=== PATIENT | male | born 1955 | race African-American/Black ===

== ENCOUNTER 2016-12-16 01:13 | Emergency (ER) | payer OTHER ==
[~2016-12-16] VITALS: Ht 175.3 cm; Wt 78.0 kg
--- NOTE | ~2016-12-16 | EKG ---
[place] [place] [address] ELECTROCARDIOGRAM REPORT Name: MARSHALL KLINE Room #: [facility]P [facility] [id number] Admission: 12/16/16 Attend Phys: Discharge: 12/16/16 Date of : 53 Report #: [id number] THIS REPORT FOR: //name// [facility] ED Test Date: 2016-12-16 Test Time: 04:14:16 Pat Name: MARSHALL KLINE Department: Room: Gender: Systems Support Specialist: HEAVENLY : 1955 Requested By: Nikki Leal Order Number: [id number] MD: Davi Purdy Measurements Intervals [place] Rate: 83 P: 74 [place]: 158 QRS: 54 QRSD: 95 T: 33 QT: 423 QTc: 497 Interpretive Statements Sinus rhythm Left atrial enlargement Left ventricular hypertrophy Anterior Q waves, possibly due to LVH No previous ECG available for comparison Electronically Signed On 12-18-2016 13:06:35 CDT by Davi Purdy [email or web address] <ELECTRONICALLY SIGNED> By: Davi Purdy MD, [facility] 12/18/16 1306 0414 0414 Davi Purdy MD, FACC /EPI
--- NOTE | ~2016-12-16 | EKG ---
[place] [address] [place] [address] ELECTROCARDIOGRAM REPORT Name: MARSHALL KLINE Room #: DEP Mejia#: [id number] Admission: 12/16/16 Attend Phys: Discharge: 12/16/16 Date of : 53 Report #: [id number] THIS REPORT FOR: //name// [facility] ED Test Date: 2016-12-16 Test Time: 01:30:01 Pat Name: MARSHALL KLINE Department: Room: Gender: Senior J2Ee Developer: PHILOMENA : 1955 Requested By: Nikki Leal Order Number: [id number] MD: Davi Purdy Measurements Intervals [place] Rate: 89 P: 74 FL: 144 QRS: 67 QRSD: 98 T: 19 QT: 426 QTc: 519 Interpretive Statements Sinus rhythm Left atrial enlargement Left ventricular hypertrophy Prolonged QT interval No previous ECG available for comparison Electronically Signed On 12-18-2016 13:06:18 CDT by Davi Purdy [email or web address] <ELECTRONICALLY SIGNED> By: Davi Purdy MD, [facility] 12/18/16 1306 0130 0130 Davi Purdy MD, FACC /EPI
[2016-12-16] MEDS ORDERED: VENTOLIN HFA 1818 GM INH ×2 (01:26→04:34)
[2016-12-16] MEDS ORDERED: BREO ELLIPTA 11 EACH IH (01:26)
[2016-12-16 01:33] LABS: ABSOLUTE NEUTROPHILS 2.2 thou/uL (1.4-8.2); EOSINOPHILS 1.7 % (0.0-3.0); HEMATOCRIT 44.7 % (42.0-52.0); HEMOGLOBIN 15.3 gm/dL (14.0-18.0); LYMPHOCYTES 50.7 % (24.0-44.0); MCH 31.1 pg (26.0-34.0); MCHC 34.2 g/dL (28.0-37.0); MCV 91.1 fL (80.0-100.0); PLATELET COUNT 186 thou/uL (150-400); POLYS 35.6 % (36.0-66.0); RDW 14.6 % (10.5-14.5); WBC 6.2 thou/uL (4.0-11.0)
[2016-12-16 01:38] LABS: CALCIUM 8.5 mg/dL (8.5-10.1); CREATININE 1.5 mg/dL (0.7-1.3)
[2016-12-16 01:44] LABS: ABG SAMPLE TYPE ARTERIAL; BE(vivo) -2.8 mmol/L (-2 to +3); HCO3 24.7 mmol/L (22.0-26.0); O2(CT) 20.6 mL/dL (15.0-23.0); O2Hb 92.6 % (92.0-98.0); PCO2 53.2 mmHg (35.0-45.0); PO2 122.5 mmHg (80.0-100.0); tCO2 26.3 mmol/L (24.0-30.0)
[2016-12-16 01:45] LABS: LACTATE 3.66 mmol/L (0.5-2.0); Pressure Support 6 cm H20; STICK SITE L.RADIAL; pH 7.284 (7.360-7.450)
[2016-12-16 01:51] LABS: MANUAL DIFF NO
[2016-12-16 01:52] LABS: TROPONIN-I 0.04 ng/mL (<0.04-0.07)
[2016-12-16] MEDS ORDERED: ALBUTEROL2.5 MG/31 INH (04:34)
[2016-12-16] MEDS ORDERED: PREDNISONE50 MG PO (04:35)
[2016-12-16 04:53] VITALS: BP 166/101
== END 2016-12-16 04:58 | disposition left against medical advice (07) ==
LOC: ER 01:13
PROVIDERS: Emergency Medicine
DX: J44.1 Chronic obstructive pulmonary disease with (acute) exacerbation (principal); R09.02 Hypoxemia; F17.210 Nicotine dependence, cigarettes, uncomplicated; F10.99 Alcohol use, unspecified with unspecified alcohol-induced disorder; F12.10 Cannabis abuse, uncomplicated

== ENCOUNTER 2017-09-01 03:23 | Inpatient (IN) | payer OTHER ==
[~2017-09-01] VITALS: Ht 172.7 cm; Wt 74.4 kg
[2017-09-01] VITALS (13 sets, daily range): BP systolic 90–231; BP diastolic 62–136
--- NOTE | ~2017-09-01 | EKG ---
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 : 1955 Requested By: Rene Christiansen Order Number: [id number] MD: Davi Purdy Measurements Intervals [place] Rate: 114 P: IN: QRS: 58 QRSD: 94 T: 4 QT: 328 QTc: 452 Interpretive Statements Technically poor tracing Sinus tachycardia with immature ventricular complexes LVH Compared to ECG 12/16/2016 04:14:16 Premature ventricular complexes are present Electronically Signed On 09-01-2017 8:24:45 CDT by Davi Purdy [email or web address] <ELECTRONICALLY SIGNED> By: Davi Purdy MD, [facility] 09/01/17 0824 1 1 Davi Purdy MD, [facility] /EPI
[~2017-09-01 03:23] MED LIST: ALBUTEROL2.5 MG/31 INH; BREO ELLIPTA 11 EACH IH; PREDNISONE50 MG PO; VENTOLIN HFA 1818 GM INH
[2017-09-01 03:46] LABS: HEMOGLOBIN 15.3 gm/dL (14.0-18.0); MCH 31.5 pg (26.0-34.0); MCHC 33.9 g/dL (28.0-37.0); MCV 92.9 fL (80.0-100.0); PLATELET COUNT 300 thou/uL (150-400); RBC 4.84 mil/uL (4.50-6.00); RDW 15.5 % (10.5-14.5); WBC 8.8 thou/uL (4.0-11.0)
[2017-09-01 04:01] LABS: ANION GAP 8 mmol/L (7-16); BUN 16 mg/dL (7-18); CALCIUM 8.9 mg/dL (8.5-10.1); CHLORIDE 107 mmol/L (98-107); CO2 28 mmol/L (21-32); CREATININE 1.2 mg/dL (0.7-1.3); POTASSIUM 4.1 mmol/L (3.5-5.1); SODIUM 143 mmol/L (136-145)
[2017-09-01 04:09] LABS: HCO3 25.5 mmol/L (22.0-26.0); PO2 378.2 mmHg (80.0-100.0); sO2 99.7 % (92.0-98.0)
[2017-09-01 04:10] LABS: ALBUMIN 3.6 g/dL (3.4-5.0); GLUCOSE 247 mg/dL (74-106); MAGNESIUM 2.6 mg/dL (1.8-2.4); SGPT 52 U/L (30-65); TOTAL BILIRUBIN 0.3 mg/dL (<0.1-1.0); TOTAL PROTEIN 7.2 g/dL (6.4-8.2); TROPONIN-I < 0.04 ng/mL (<0.06)
[2017-09-01 04:10] LABS: PCO2 73.4 mmHg (35.0-45.0); pH 7.159 (7.360-7.450)
[2017-09-01 04:29] LABS: SGOT 54 U/L (15-37)
[2017-09-01 04:35] LABS: ABSOLUTE NEUTROPHILS 1.2 thou/uL (1.4-8.2)
[2017-09-01] MEDS ORDERED: COZAAR 50 MG TA50 M2 PO (06:32)
[2017-09-01 08:58] LABS: BE(vivo) 2.6 mmol/L (-2 to +3); HCO3 29.3 mmol/L (22.0-26.0); PCO2 53.1 mmHg (35.0-45.0); PO2 66.3 mmHg (80.0-100.0); sO2 92.1 % (92.0-98.0)
[2017-09-01] MEDS ORDERED: PREDNISONE50 MG PO (08:59)
[2017-09-01] MEDS ORDERED: VENTOLIN HFA 1818 GM INH (08:59)
[2017-09-01] MEDS ORDERED: AZITHROMYCIN 2250 MG PO (09:00)
[2017-09-02 00:09] LABS: GLYCOHEMOGLOBIN (HGB A1C) 5.3 % (4.8-5.6)
[2018-02-04] MEDS ORDERED: AZITHROMYCIN 2250 MG PO (04:06)
[2018-02-04] MEDS ORDERED: PREDNISONE 20 M20 MG PO (04:06)
[2018-02-04] MEDS ORDERED: HYDROCHLOROTHIA25 M2 PO (04:06)
[2018-02-04] MEDS ORDERED: ASPIRIN81 M2 PO (04:06)
[2018-02-04] MEDS ORDERED: CARVEDILOL12.5 MG PO (04:06)
== END 2017-09-01 10:10 | disposition left against medical advice (07) | DRG 189 ==
LOC: ER 03:23 → ICU 04:28 → EROBS 04:28 → ICU 05:01
PROVIDERS: Emergency Medicine; Nurse Practitioner Acute Care
DX: J96.22 Acute and chronic respiratory failure with hypercapnia (principal); J44.1 Chronic obstructive pulmonary disease with (acute) exacerbation; E87.2 Acidosis; I16.0 Hypertensive urgency; R73.9 Hyperglycemia, unspecified; I10 Essential (primary) hypertension; F17.210 Nicotine dependence, cigarettes, uncomplicated; Z53.21 Procedure and treatment not carried out due to patient leaving prior to being seen by health care provider; Z79.51 Long term (current) use of inhaled steroids; Z79.899 Other long term (current) drug therapy; Z71.6 Tobacco abuse counseling
CPT/HCPCS: 10203

== ENCOUNTER 2017-09-28 00:28 | Inpatient (IN) | payer OTHER ==
[~2017-09-28] VITALS: Ht 175.3 cm; Wt 75.4 kg
--- NOTE | ~2017-09-28 | EKG ---
[address] [address] ELECTROCARDIOGRAM REPORT Name: MARSHALL KLINE Room #: 203-P ADM IN M.R.#: [id number] Admission: 09/28/17 Attend Phys: Reinier Kessler MD Discharge: Date of : 53 Report #: [id number] THIS REPORT FOR: //name// [facility] ED Test Date: 2017-09-28 Test Time: 00:37:35 Pat Name: MARSHALL KLINE Department: Room: 203 Gender: M Network Internship: PHILOMENA : 1955 Requested By: Rene Christiansen Order Number: [id number] MD: Augusto Lawrence Measurements Intervals [place] Rate: 118 P: 71 [place]: 145 QRS: 55 QRSD: 89 T: 19 QT: 332 QTc: 466 Interpretive Statements Sinus tachycardia Ventricular trigeminy Left atrial enlargement Left ventricular hypertrophy Electronically Signed On 09-28-2017 8:10:50 CDT by Augusto Lawrence [email or web address] <ELECTRONICALLY SIGNED> By: Augusto Lawrence MD 09/28/17 0810 0037 Augusto Lawrence MD /LAURO
--- NOTE | ~2017-09-28 | 2DMMODE ---
[facility] [address] [employer] [place] [address] 2 D/M-MODE ECHOCARDIOGRAM Name: MARSHALL KLINE Room #: 203-P ADM IN M.R.#: [id number] Admission: 09/28/17 Attend Phys: Reinier Kessler, Discharge: Date of : 53 Date of Service: 09/28/17 1000 Report #: [id number] THIS REPORT FOR: //name// APPROVED REPORT Study performed: 09/28/2017 08:33:15 EXAM: Comprehensive 2D, Doppler, and color-flow Echocardiogram Patient Location: Echo lab Room #: 203 Status: routine BSA: 1.91 HR: 62 bpm BP: 151/90 mmHg Rhythm: Sinus arrhythmia Other Information Study Quality: Good Indications COPD exacerbation, Short of breath, HTN 2D Dimensions RVDd: 38.45 mm LVEF(%): 22.46 (>50%) IVSd: 12.19 (7-11mm) LVOT Diam: 21.56 (18-24mm) LVDd: 58.99 mm PWd: 12.03 (7-11mm) LVDs: 52.82 (25-40mm) Aortic Root: 34.87 mm Wilson's LVEF: 22.46 % Volumes Left Atrial Volume (Systole) Single Plane 4CH: 43.43 mL Single Plane 2CH: 51.03 mL LA ESV Index: 27.00 mL/m2 Aortic Valve AoV Peak Keith.: 1.88 m/s AO Peak Gr.: 14.16 mmHg LVOT Max P.01 mmHg AO Mean Gr.: 6.72 mmHg AO V2 Mean: 1.20 m/s LVOT Max V: 1.00 m/s AO V2 VTI: 29.80 cm BRADLY Vmax: 1.94 cm2 Mitral Valve [facility] [place] [address] 2 D/M-MODE ECHOCARDIOGRAM Name: MARSHALL KLINE Room #: 203-P [facility] IN M.R.#: [id number] Admission: 09/28/17 Attend Phys: Reinier Kessler, Discharge: Date of : 53 Date of Service: 09/28/17 1000 Report #: [id number] E/A Ratio: 0.9 MV Decel. Time: 238.26 ms MV E Max Keith.: 0.61 m/s MV A Keith.: 0.69 m/s MV PHT: 69.10 ms IVRT: 87.66 ms Pulmonary Valve PV Peak Keith.: 0.83 m/s PV Peak Gr.: 2.77 mmHg Pulmonary Vein P Vein S: 0.58 m/s P Vein A: 0.39 m/s P Vein D: 0.48 m/s P Vein A Dur.: 124.6 msec P Vein S/D Ratio: 1.21 Tricuspid Valve RAP Estimate: 5.00 mmHg Left Ventricle Left ventricle is mildly dilated. Mild concentric left ventricular hypertrophy. Left ventricular systolic function is moderately decreased. LVEF 40%. Mild diastolic dysfunction is present (impaired relaxation pattern). Right Ventricle The right ventricle is normal size. The right ventricular systolic function is normal. Atria The left atrium size is normal. The right atrium size is normal. Aortic Valve Aortic valve is mildly calcified, trileaflet. Trace aortic regurgitation. There is no aortic valvular stenosis. Mitral Valve The mitral valve is normal in structure. Mild mitral regurgitation. Tricuspid Valve The tricuspid valve is normal in structure. There is no tricuspid valve regurgitation noted. Unable to assess PA pressure. Pulmonic Valve The pulmonary valve is normal in structure. Mild pulmonic [facility] [address] [place] [id number] 2 D/M-MODE ECHOCARDIOGRAM Name: MARSHALL KLINE Room #: 203-P [facility] IN .R.#: [id number] Admission: 09/28/17 Attend Phys: Reinier Kessler, Discharge: Date of : 53 Date of Service: 09/28/17 1000 Report #: [id number] regurgitation. Great Vessels The aortic root is normal in size. Ascending aorta is not well visualized. IVC is normal in size and collapses >50% with inspiration. Pericardium There is no pericardial effusion. <Conclusion> Left ventricular systolic function is moderately decreased. Mild concentric left ventricular hypertrophy. LVEF 40%. Mild diastolic dysfunction Aortic valve is mildly calcified, trileaflet. Trace aortic regurgitation, no stenosis. The mitral valve is normal in structure. Mild mitral regurgitation. Pulmonary artery pressure could not be reliably ascertained There is no pericardial effusion. <ELECTRONICALLY SIGNED> By: Davi Purdy MD, FACC 09/28/17 1000 1000 1000 Davi Purdy MD, FACC /INF
[~2017-09-28 00:28] MED LIST changes: +AZITHROMYCIN 2250 MG PO; +COZAAR 50 MG TA50 M2 PO
[2017-09-28 00:53] LABS: HEMATOCRIT 44.7 % (42.0-52.0); HEMOGLOBIN 15.3 gm/dL (14.0-18.0); MCH 32.1 pg (26.0-34.0); MCHC 34.2 g/dL (28.0-37.0); MCV 93.7 fL (80.0-100.0); PLATELET COUNT 231 thou/uL (150-400); RBC 4.77 mil/uL (4.50-6.00); RDW 15.8 % (10.5-14.5); WBC 10.6 thou/uL (4.0-11.0)
[2017-09-28 01:05] LABS: CALCIUM 8.2 mg/dL (8.5-10.1); CREATININE 1.5 mg/dL (0.7-1.3)
[2017-09-28 01:08] LABS: POTASSIUM 4.7 mmol/L (3.5-5.1)
[2017-09-28 01:13] LABS: ALBUMIN 3.4 g/dL (3.4-5.0); MAGNESIUM 2.3 mg/dL (1.8-2.4); TOTAL BILIRUBIN 0.4 mg/dL (<0.1-1.0); TROPONIN-I 0.04 ng/mL (<0.06)
[2017-09-28 01:33] LABS: ABSOLUTE NEUTROPHILS 2.9 thou/uL (1.4-8.2); ATYPICAL LYMPHS 1 %
[2017-09-28 01:37] LABS: BE(vivo) -1.1 mmol/L (-2 to +3); HCO3 25.8 mmol/L (22.0-26.0); PCO2 VENOUS 51.5 mmHg (41.0-51.0); PO2 VENOUS 133.8 mmHg (35.0-45.0)
[2017-09-28 02:22] VITALS: BP 131/75
[2017-09-28 02:58] VITALS: BP 151/90
[2017-09-28 08:55] VITALS: BP 153/90
[2017-09-28 12:00] VITALS: BP 151/75
[2017-09-28 16:13] LABS: HAV IgM AB (ANTI-HAV IgM) Negative (Negative); HEPATITIS B SURFACE AG Negative (Negative); HEPATITIS C VIRUS AB <0.1 (0.0-0.9)
== END 2017-09-28 19:27 | disposition left against medical advice (07) | DRG 682 ==
LOC: ER 00:28 → EROBS 02:05 → 2N 02:05
PROVIDERS: Emergency Medicine; Nurse Practitioner Acute Care
PROC: 5A09357 Assistance with Respiratory Ventilation, Less than 24 Consecutive Hours, Continuous Positive Airway Pressure (ICD-10-PCS; principal; 2017-09-28)
DX: N17.9 Acute kidney failure, unspecified (principal); J96.21 Acute and chronic respiratory failure with hypoxia; J44.1 Chronic obstructive pulmonary disease with (acute) exacerbation; F12.90 Cannabis use, unspecified, uncomplicated; F17.210 Nicotine dependence, cigarettes, uncomplicated; I16.0 Hypertensive urgency; I11.0 Hypertensive heart disease with heart failure; R74.0 Nonspecific elevation of levels of transaminase and lactic acid dehydrogenase [LDH]; R73.9 Hyperglycemia, unspecified; Z53.21 Procedure and treatment not carried out due to patient leaving prior to being seen by health care provider
CPT/HCPCS: 10081

== ENCOUNTER 2017-12-05 02:16 | Emergency (ER) | payer OTHER ==
[~2017-12-05] VITALS: Ht 175.3 cm; Wt 77.1 kg
--- NOTE | ~2017-12-05 | EKG ---
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: TOMAS : 1955 Requested By: Chelsy Davison Order Number: [id number] MD: Davi Purdy Measurements Intervals [place] Rate: 115 P: 77 [place]: 142 QRS: 72 QRSD: 92 T: -44 QT: 311 QTc: 430 Interpretive Statements Sinus tachycardia Biatrial enlargement Left ventricular hypertrophy Anterior Q waves, possibly due to LVH Baseline wander in lead(s) V4 Compared to ECG 09/28/2017 00:37:35 No significant change was found Electronically Signed On 12-05-2017 9:00:23 CDT by Davi Purdy [email or web address] <ELECTRONICALLY SIGNED> By: Davi Purdy MD, [facility] 12/05/17 0900 2 021 Davi Purdy MD, [facility] /EPI
[2017-12-05 02:17] VITALS: BP 200/117
[2017-12-05 02:30] LABS: HEMATOCRIT 45.5 % (42.0-52.0); HEMOGLOBIN 15.8 gm/dL (14.0-18.0); MCH 32.8 pg (26.0-34.0); MCHC 34.7 g/dL (28.0-37.0); MCV 94.6 fL (80.0-100.0); PLATELET COUNT 236 thou/uL (150-400); RBC 4.81 mil/uL (4.50-6.00); RDW 14.9 % (10.5-14.5); WBC 10.7 thou/uL (4.0-11.0)
[2017-12-05 02:44] LABS: ANION GAP 8 mmol/L (7-16); BUN 26 mg/dL (7-18); CHLORIDE 100 mmol/L (98-107); CO2 22 mmol/L (21-32); CREATININE 1.9 mg/dL (0.7-1.3); GLUCOSE 347 mg/dL (74-106); POTASSIUM 5.1 mmol/L (3.5-5.1); SODIUM 130 mmol/L (136-145)
[2017-12-05 02:52] LABS: TROPONIN-I <0.06 ng/mL (<0.06)
[2017-12-05 02:53] LABS: BE(vivo) -9.6 mmol/L (-2 to +3); HCO3 18.7 mmol/L (22.0-26.0); PCO2 49.6 mmHg (35.0-45.0); PO2 304.4 mmHg (80.0-100.0); pH 7.194 (7.360-7.450); sO2 99.6 % (92.0-98.0)
[2017-12-05 03:20] LABS: ABSOLUTE NEUTROPHILS 3.5 thou/uL (1.4-8.2); ATYPICAL LYMPHS 3 %; MYELOCYTES 1 %
[2017-12-05 03:21] LABS: LARGE PLATELETS OCCASIONAL
[2017-12-05 04:55] VITALS: BP 163/88
== END 2017-12-05 05:00 | disposition left against medical advice (07) ==
LOC: ER 02:16 → EROBS 03:23 → 3W 05:01
PROVIDERS: Emergency Medicine
DX: J96.00 Acute respiratory failure, unspecified whether with hypoxia or hypercapnia (principal); J45.902 Unspecified asthma with status asthmaticus; N28.9 Disorder of kidney and ureter, unspecified; I10 Essential (primary) hypertension; J44.9 Chronic obstructive pulmonary disease, unspecified; F17.210 Nicotine dependence, cigarettes, uncomplicated

== ENCOUNTER 2018-03-31 23:08 | Inpatient (IN) | payer BC ==
[~2018-03-31] VITALS: Ht 175.3 cm; Wt 79.5 kg
--- NOTE | ~2018-03-31 | EKG ---
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 Faculty Member: 00 : 1955 Requested By: Rene Christiansen Order Number: [id number] MD: Augusto Lawrence Measurements Intervals [place] Rate: 123 P: 75 GA: 135 QRS: 61 QRSD: 94 T: -50 QT: 308 QTc: 441 Interpretive Statements Sinus arrhythmia Ventricular trigeminy Probable left atrial enlargement Left ventricular hypertrophy Anterior Q waves, possibly due to LVH Compared to ECG 02/15/2018 01:59:09 Electronically Signed On 04-02-2018 8:32:23 CDT by Augusto Lawrence [email or web address] <ELECTRONICALLY SIGNED> By: Augusto Lawrence MD 04/02/18 0832 2313 2313 Augusto Lawrnece MD /EPI
[~2018-03-31 23:08] MED LIST changes: +ASPIRIN81 M2 PO; +CARVEDILOL12.5 MG PO; +HYDROCHLOROTHIA25 M2 PO; +PREDNISONE 20 M20 MG PO
[2018-03-31 23:09] VITALS: BP 232/141
[2018-03-31 23:27] LABS: HEMATOCRIT 43.3 % (42.0-52.0); HEMOGLOBIN 14.6 gm/dL (14.0-18.0); MCH 31.8 pg (26.0-34.0); MCHC 33.7 g/dL (28.0-37.0); MCV 94.4 fL (80.0-100.0); PLATELET COUNT 241 thou/uL (150-400); RBC 4.59 mil/uL (4.50-6.00); RDW 14.9 % (10.5-14.5)
[2018-03-31 23:32] LABS: ANION GAP 11 mmol/L (7-16); BUN 22 mg/dL (7-18); CALCIUM 8.7 mg/dL (8.5-10.1); CHLORIDE 106 mmol/L (98-107); CO2 25 mmol/L (21-32); CREATININE 1.5 mg/dL (0.7-1.3); POTASSIUM 4.4 mmol/L (3.5-5.1); SODIUM 142 mmol/L (136-145)
[2018-03-31 23:34] LABS: BE(vivo) -5.1 mmol/L (-2 to +3); HCO3 23.2 mmol/L (22.0-26.0); PCO2 55.8 mmHg (35.0-45.0); PO2 619.2 mmHg (80.0-100.0); sO2 99.9 % (92.0-98.0)
[2018-03-31 23:35] LABS: pH 7.236 (7.360-7.450)
[2018-03-31 23:41] LABS: ALBUMIN 3.5 g/dL (3.4-5.0); MAGNESIUM 2.6 mg/dL (1.8-2.4); SGOT 33 U/L (15-37); SGPT 40 U/L (30-65); TOTAL BILIRUBIN 0.2 mg/dL (<0.1-1.0); TOTAL PROTEIN 7.3 g/dL (6.4-8.2); TROPONIN-I <0.06 ng/mL (<0.06)
[2018-03-31 23:51] LABS: GLUCOSE 260 mg/dL (74-106)
[2018-04-01 00:17] LABS: ABSOLUTE NEUTROPHILS 3.5 thou/uL (1.4-8.2); ANISOCYTOSIS SLIGHT; ATYPICAL LYMPHS 23 %; POIKILOCYTOSIS SLIGHT
[2018-04-01 00:36] LABS: AMP/METHAMP Negative (Negative); BARBITURATES Negative (Negative); BENZODIAZEPINES Negative (Negative); COCAINE Negative (Negative); METHADONE Negative (Negative); OPIATES POSITIVE (Negative); PCP Negative (Negative)
[2018-04-01 00:40] VITALS: BP 113/71
[2018-04-01 01:04] VITALS: BP 113/71
[2018-04-01 01:31] VITALS: BP 153/92
[2018-04-01 04:05] VITALS: BP 149/79
[2018-04-01 05:42] LABS: HCO3 25.8 mmol/L (22.0-26.0); PCO2 41.9 mmHg (35.0-45.0); PO2 104.1 mmHg (80.0-100.0); pH 7.408 (7.360-7.450); sO2 97.8 % (92.0-98.0)
[2018-04-01] MEDS ORDERED: LOSARTAN-HCTZ1 EAC3 PO ×2 (08:06→10:21)
[2018-04-01 09:04] VITALS: BP 154/80
[2018-04-01 10:38] VITALS: BP 154/80
== END 2018-04-01 11:35 | disposition home or self-care (01) | DRG 291 ==
LOC: ER 23:08 → EROBS 04-01 00:31 → 2N 04-01 02:14
PROVIDERS: Emergency Medicine; Nurse Practitioner Acute Care
PROC: 5A09357 Assistance with Respiratory Ventilation, Less than 24 Consecutive Hours, Continuous Positive Airway Pressure (ICD-10-PCS; principal; 2018-04-01)
DX: I13.0 Hypertensive heart and chronic kidney disease with heart failure and stage 1 through stage 4 chronic kidney disease, or unspecified chronic kidney disease (principal); I50.23 Acute on chronic systolic (congestive) heart failure; J96.20 Acute and chronic respiratory failure, unspecified whether with hypoxia or hypercapnia; J44.1 Chronic obstructive pulmonary disease with (acute) exacerbation; I16.1 Hypertensive emergency; F17.210 Nicotine dependence, cigarettes, uncomplicated; J45.909 Unspecified asthma, uncomplicated; N18.3 Chronic kidney disease, stage 3 (moderate); I16.0 Hypertensive urgency; Z79.899 Other long term (current) drug therapy
CPT/HCPCS: 10194

== ENCOUNTER 2018-04-13 03:38 | Emergency (ER) | payer BC ==
[~2018-04-13] VITALS: Ht 172.7 cm; Wt 72.6 kg
--- NOTE | ~2018-04-13 | EKG ---
[place] [address] [address] 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: : 1955 Requested By: Nikki Leal Order Number: [id number] MD: Davi Purdy Measurements Intervals [place] Rate: 90 P: 78 IN: 132 QRS: 59 QRSD: 96 T: 80 QT: 387 QTc: 474 Interpretive Statements Sinus rhythm Atrial premature complexes Left ventricular hypertrophy Anterior Q waves, possibly due to LVH Compared to ECG 03/31/2018 23:13:58 Atrial premature complex(es) now present Ventricular premature complex(es) no longer present Electronically Signed On 04-13-2018 9:00:50 CDT by Davi Purdy [email or web address] <ELECTRONICALLY SIGNED> By: Davi Purdy MD, [facility] 04/13/18 0900 040 0402 Davi Purdy MD, [facility] /EPI
[~2018-04-13 03:38] MED LIST changes: +LOSARTAN-HCTZ1 EAC3 PO
[2018-04-13 03:51] LABS: HEMATOCRIT 41.8 % (42.0-52.0); HEMOGLOBIN 14.6 gm/dL (14.0-18.0); MCH 32.5 pg (26.0-34.0); MCV 93.1 fL (80.0-100.0); RBC 4.49 mil/uL (4.50-6.00); RDW 14.8 % (10.5-14.5); WBC 9.4 thou/uL (4.0-11.0)
[2018-04-13 04:04] LABS: CALCIUM 8.7 mg/dL (8.5-10.1); CREATININE 1.2 mg/dL (0.7-1.3); POTASSIUM 3.9 mmol/L (3.5-5.1)
[2018-04-13 04:06] LABS: BE(vivo) -3.3 mmol/L (-2 to +3); HCO3 23.4 mmol/L (22.0-26.0); PCO2 48.3 mmHg (35.0-45.0); PO2 254.8 mmHg (80.0-100.0); pH 7.303 (7.360-7.450); sO2 99.5 % (92.0-98.0)
[2018-04-13 06:00] VITALS: BP 160/94
== END 2018-04-13 06:25 | disposition home or self-care (01) ==
LOC: ER 03:38
PROVIDERS: Emergency Medicine
DX: J44.1 Chronic obstructive pulmonary disease with (acute) exacerbation (principal); R06.03 Acute respiratory distress; F17.210 Nicotine dependence, cigarettes, uncomplicated; I50.20 Unspecified systolic (congestive) heart failure

== ENCOUNTER 2018-10-02 02:00 | Emergency (ER) | payer BC, OTHER ==
[~2018-10-02] VITALS: Ht 177.8 cm; Wt 81.7 kg
[2018-10-02 02:24] LABS: HEMATOCRIT 46.6 % (42.0-52.0); HEMOGLOBIN 15.5 gm/dL (14.0-18.0); MCH 30.2 pg (26.0-34.0); MCHC 33.3 g/dL (28.0-37.0); MCV 90.6 fL (80.0-100.0); RBC 5.14 mil/uL (4.50-6.00); RDW 14.8 % (10.5-14.5); WBC 6.1 thou/uL (4.0-11.0)
[2018-10-02 02:25] LABS: ANION GAP 13 mmol/L (7-16); BUN 20 mg/dL (7-18); CHLORIDE 105 mmol/L (98-107); CO2 23 mmol/L (21-32); CREATININE 1.3 mg/dL (0.7-1.3); GLUCOSE 218 mg/dL (74-106); POTASSIUM 4.3 mmol/L (3.5-5.1); SODIUM 141 mmol/L (136-145)
[2018-10-02 02:26] LABS: BE(vivo) -3.5 mmol/L (-2 to +3); HCO3 23.8 mmol/L (22.0-26.0); PCO2 51.8 mmHg (35.0-45.0); PO2 242.2 mmHg (80.0-100.0); sO2 99.4 % (92.0-98.0)
[2018-10-02 02:27] LABS: pH 7.281 (7.360-7.450)
[2018-10-02 02:33] LABS: TROPONIN-I <0.06 ng/mL (<0.06)
[2018-10-02 03:32] VITALS: BP 125/70
[2018-10-02] MEDS ORDERED: PREDNISONE 20 M20 MG PO (03:43)
--- NOTE | 2018-10-02 17:08 | EKG ---
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 : 1955 Requested By: Matheus Cotton Order Number: [id number] MD: Davi Purdy Measurements Intervals [place] Rate: 88 P: 73 [place]: 164 QRS: 67 QRSD: 100 T: 88 QT: 413 QTc: 500 Interpretive Statements Sinus rhythm Probable left atrial enlargement Left ventricular hypertrophy Anterior Q waves, possibly due to LVH Compared to ECG 04/13/2018 04:02:16 Atrial premature complex(es) no longer present Electronically Signed On 10-02-2018 17:08:06 CDT by Davi Purdy [email or web address] ��������������������������������������������� <ELECTRONICALLY SIGNED> ���������������������������������������� By: Davi Purdy MD, [facility] ��������������������������������������������� 10/02/18 1708 3 3 Davi Purdy MD, [facility] /EPI
== END 2018-10-02 04:08 | disposition home or self-care (01) ==
LOC: ER 02:00
PROVIDERS: Emergency Medicine
DX: J44.1 Chronic obstructive pulmonary disease with (acute) exacerbation (principal); J96.02 Acute respiratory failure with hypercapnia; J96.01 Acute respiratory failure with hypoxia; F17.210 Nicotine dependence, cigarettes, uncomplicated; I11.0 Hypertensive heart disease with heart failure; I50.20 Unspecified systolic (congestive) heart failure

== ENCOUNTER 2018-10-17 02:11 | Emergency (ER) | payer BC, OTHER ==
[~2018-10-17] VITALS: Ht 175.3 cm; Wt 78.0 kg
[2018-10-17 02:24] LABS: HCO3 22.7 mmol/L (22.0-26.0); PCO2 VENOUS 52.1 mmHg (41.0-51.0); PO2 VENOUS 81.6 mmHg (35.0-45.0)
[2018-10-17 02:27] LABS: HEMATOCRIT 43.5 % (42.0-52.0); HEMOGLOBIN 14.7 gm/dL (14.0-18.0); MCH 30.3 pg (26.0-34.0); MCHC 33.8 g/dL (28.0-37.0); MCV 89.6 fL (80.0-100.0); PLATELET COUNT 194 thou/uL (150-400); RBC 4.86 mil/uL (4.50-6.00); WBC 4.4 thou/uL (4.0-11.0)
[2018-10-17 02:35] LABS: ANION GAP 11 mmol/L (7-16); BUN 20 mg/dL (7-18); CALCIUM 8.1 mg/dL (8.5-10.1); CHLORIDE 105 mmol/L (98-107); CO2 25 mmol/L (21-32); CREATININE 1.4 mg/dL (0.7-1.3); GLUCOSE 250 mg/dL (74-106); SODIUM 141 mmol/L (136-145)
[2018-10-17 02:36] LABS: POTASSIUM 4.2 mmol/L (3.5-5.1)
[2018-10-17 02:45] LABS: ALBUMIN 3.2 g/dL (3.4-5.0); TOTAL BILIRUBIN 0.5 mg/dL (<0.1-1.0); TOTAL PROTEIN 6.6 g/dL (6.4-8.2); TROPONIN-I <0.06 ng/mL (<0.06)
[2018-10-17 03:02] LABS: ABSOLUTE NEUTROPHILS 1.5 thou/uL (1.4-8.2)
[2018-10-17 03:03] LABS: PLATELET ESTIMATE NORMAL
[2018-10-17 03:07] LABS: SGOT 94 U/L (15-37); SGPT 45 U/L (30-65)
[2018-10-17] MEDS ORDERED: PREDNISONE 20 M20 MG PO (05:02)
[2018-10-17 05:08] VITALS: BP 170/101
--- NOTE | 2018-10-17 14:19 | EKG ---
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: kayli : 1955 Requested By: Didi Keita Order Number: [id number] MD: Davi Purdy Measurements Intervals [place] Rate: 78 P: 73 IN: 152 QRS: 66 QRSD: 112 T: 62 QT: 459 QTc: 523 Interpretive Statements Sinus rhythm Atrial premature complex Left ventricular hypertrophy Poor R wave progression Prolonged QT interval Compared to ECG 10/02/2018 02:24:43 Atrial premature complex(es) now present Electronically Signed On 10-17-2018 14:18:51 CDT by Davi Purdy [email or web address] ��������������������������������������������� <ELECTRONICALLY SIGNED> ���������������������������������������� By: Davi Purdy MD, [facility] ��������������������������������������������� 10/17/18 1418 0310 0310 Davi Purdy MD, [facility] /EPI
== END 2018-10-17 05:09 | disposition home or self-care (01) ==
LOC: ER 02:11
PROVIDERS: Student in an Organized Health Care Education/Training Program
DX: J44.1 Chronic obstructive pulmonary disease with (acute) exacerbation (principal); F17.210 Nicotine dependence, cigarettes, uncomplicated; I50.20 Unspecified systolic (congestive) heart failure

== ENCOUNTER 2018-10-20 06:32 | Emergency (ER) | payer BC, OTHER ==
[~2018-10-20] VITALS: Ht 177.8 cm; Wt 83.7 kg
[2018-10-20 06:48] LABS: HEMATOCRIT 44.3 % (42.0-52.0); HEMOGLOBIN 14.6 gm/dL (14.0-18.0); PLATELET COUNT 179 thou/uL (150-400); RBC 4.87 mil/uL (4.50-6.00); RDW 15.4 % (10.5-14.5); WBC 12.1 thou/uL (4.0-11.0)
[2018-10-20 06:53] LABS: BE(vivo) -8.4 mmol/L (-2 to +3); HCO3 18.2 mmol/L (22.0-26.0); PO2 VENOUS 219.7 mmHg (35.0-45.0)
[2018-10-20 07:08] LABS: CALCIUM 8.1 mg/dL (8.5-10.1); CREATININE 1.4 mg/dL (0.7-1.3)
[2018-10-20 07:18] LABS: ALBUMIN 3.1 g/dL (3.4-5.0); TOTAL BILIRUBIN 0.2 mg/dL (<0.1-1.0); TOTAL PROTEIN 6.5 g/dL (6.4-8.2); TROPONIN-I 0.06 ng/mL (<0.06)
[2018-10-20 08:02] LABS: ABSOLUTE NEUTROPHILS 5.4 thou/uL (1.4-8.2)
[2018-10-20 08:03] LABS: ANISOCYTOSIS 1+; POLYCHROMASIA OCCASIONAL
[2018-10-20] MEDS ORDERED: DOXYCYCLINE 10100 MG PO (12:00)
[2018-10-20] MEDS ORDERED: PREDNISONE 20 M20 MG PO (12:04)
[2018-10-20 12:41] VITALS: BP 145/79
--- NOTE | 2018-10-21 10:21 | EKG ---
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 : 1955 Requested By: Didi Keita Order Number: [id number] MD: Davi Purdy Measurements Intervals [place] Rate: 108 P: 69 FL: 126 QRS: 71 QRSD: 94 T: 36 QT: 387 QTc: 519 Interpretive Statements Sinus tachycardia Left ventricular hypertrophy Poor R wave progression Prolonged QT interval Compared to ECG 10/17/2018 03:10:[address] nonspecific change in the ST segments Electronically Signed On 10-21-2018 10:21:10 CDT by Davi Purdy [email or web address] ��������������������������������������������� <ELECTRONICALLY SIGNED> ���������������������������������������� By: Davi Purdy MD, [facility] ��������������������������������������������� 10/21/18 1021 Davi Purdy MD, [facility] /EPI
--- NOTE | 2018-10-21 14:52 | HC ---
[facility] [place] [address] CONSULTATION Name: MARSHALL KLINE Room #: DEP MCammie#: [id number] Admission: 10/20/18 ������������������ Attend Phys: Discharge: 10/20/18 ������������������ Date of : 53 Report #: [id number] THIS REPORT FOR: //name// CC: FAM unknown Didi Keita DATE OF SERVICE: 10/20/2018 REFERRING PHYSICIAN: Dr. Keita. REASON FOR REFERRAL: Recurrent COPD exacerbation. HISTORY OF PRESENT ILLNESS: The patient is a 63-year-old male who presents to the ED with dyspnea. He has a history of COPD with frequent ER visits. A pulmonary consultation was requested. The patient said he was diagnosed with COPD about a year or so ago. He has smoked about a pack a day for most of his life. He is trying to cut back. He is smoking half a pack a day. He was doing fairly well until for the past year, he started noticing increasing dyspnea on exertion. He was followed by his knocker off at [facility]. Recently, his inhaler was switched to Trelegy. Despite this, he has had frequent ER visits with exacerbation. He has been seen twice this year so far in the ER. Last year, he was in the ER about 6 times. The patient otherwise denies any history of asthma. Aside from his dyspnea, he denies any sore throat, chest pain, febrile illness, productive cough, hemoptysis. PAST MEDICAL HISTORY: Notable for cardiomyopathy with past echocardiogram showing ejection fraction of 40%, COPD with questionable asthma. Tobacco abuse. PAST SURGICAL HISTORY: Unremarkable. ALLERGIES: None to medications. HOME MEDICATIONS: Reviewed. This includes recent prednisone, aspirin, Coreg, Trelegy, Ventolin p.r.n. FAMILY HISTORY: Noncontributory. SOCIAL HISTORY: Smoking less than half a pack a day. He drinks socially. He currently works for a [employer] company. REVIEW OF SYSTEMS: As mentioned above, otherwise 10-point system review [address] [address] CONSULTATION Name: MARSHALL KLINE Room #: [facility] Mejia#: [id number] Admission: 10/20/18 ������������������ Attend Phys: Discharge: 10/20/18 ������������������ Date of : 53 Report #: [id number]. PHYSICAL EXAMINATION: GENERAL: He is awake, alert, in no distress. He appears mildly dyspneic. VITAL SIGNS: Blood pressure 174/118 mmHg, saturation 98%, pulse 120, respiratory rate is 26. HEENT: Normocephalic, atraumatic. NECK: Supple, without lymphadenopathy or thyromegaly. CHEST: Breath sounds are good with minimal wheezes bilaterally. No rales. CARDIOVASCULAR: Normal S1, S2. There are no murmurs or gallop. There is no JVD. There is no carotid bruit. Pulses are 2+/4+ bilaterally. ABDOMEN: Soft, nontender, no organomegaly or masses felt. GENITOURINARY: Deferred. RECTAL: Deferred. EXTREMITIES: No edema, cyanosis or clubbing. LABORATORY DATA: Chest x-ray is clear. Electrolytes unremarkable except for creatinine 1.4. WBC 12,000, hemoglobin is 14.6 without evidence of eosinophilia. IMPRESSION: 1. Recurrent dyspnea in this 63-year-old male, likely related to underlying chronic obstructive pulmonary disease and perhaps a component of asthma overlap syndrome given acute symptoms. Unfortunately, the patient continues to smoke. 2. Chronic obstructive pulmonary disease, suspect asthma overlap as mentioned above. 3. Tobacco abuse. 4. Cardiomyopathy, etiology unknown. 5. Frequent ER visits. RECOMMENDATION AND DISCUSSION: I had a long discussion with the patient regarding his frequent ER visits along with exacerbation of COPD. Without smoking cessation, it will be difficult to tell if there are other processes affecting his COPD. It is imperative that he stop smoking to get better. Otherwise, I am concerned that his pulmonary condition may worsen and perhaps even demise. Following discussion, he voices understanding. He is followed by his knocker off at [facility]. I strongly recommended he follow with him along with smoking cessation. For now, recommend prednisone 40 mg once a day for 5 days, continue Trelegy along with albuterol MDI p.r.n. In regards to his cardiomyopathy, the patient would benefit from further workup including other causes for cardiomyopathy such as sleep disordered breathing. [address] [address] CONSULTATION Name: MARSHALL KLINE Room #: DEP Mejia#: [id number] Admission: 10/20/18 ������������������ Attend Phys: Discharge: 10/20/18 ������������������ Date of : 53 Report #: [id number] Thank you for this consultation. ��������������������������������������������� <ELECTRONICALLY SIGNED> ���������������������������������������� By: Hao Leblanc MD ��������������������������������������������� 10/21/18 1452 1448 0608 Hao Leblanc MD /nt
== END 2018-10-20 12:43 | disposition home or self-care (01) ==
LOC: ER 06:32
PROVIDERS: Student in an Organized Health Care Education/Training Program
DX: J44.1 Chronic obstructive pulmonary disease with (acute) exacerbation (principal); J18.9 Pneumonia, unspecified organism; F17.210 Nicotine dependence, cigarettes, uncomplicated; I50.20 Unspecified systolic (congestive) heart failure

== ENCOUNTER 2018-11-14 05:44 | Emergency (ER) | payer BC, OTHER ==
[~2018-11-14] VITALS: Ht 175.3 cm; Wt 76.2 kg
[~2018-11-14 05:44] MED LIST changes: +DOXYCYCLINE 10100 MG PO
[2018-11-14 06:34] LABS: ABSOLUTE NEUTROPHILS 3.9 thou/uL (1.4-8.2); EOSINOPHILS 1.2 % (0.0-3.0); HEMATOCRIT 42.7 % (42.0-52.0); HEMOGLOBIN 14.2 gm/dL (14.0-18.0); LYMPHOCYTES 42.9 % (24.0-44.0); MCH 30.8 pg (26.0-34.0); MCHC 33.2 g/dL (28.0-37.0); MCV 92.8 fL (80.0-100.0); MONOCYTES 9.4 % (1.0-8.0); PLATELET COUNT 174 thou/uL (150-400); POLYS 45.5 % (36.0-66.0); RDW 16.5 % (10.5-14.5); WBC 8.6 thou/uL (4.0-11.0)
[2018-11-14 07:31] LABS: ANION GAP 15 mmol/L (7-16); BUN 23 mg/dL (7-18); CALCIUM 8.2 mg/dL (8.5-10.1); CHLORIDE 108 mmol/L (98-107); CO2 21 mmol/L (21-32); CREATININE 1.5 mg/dL (0.7-1.3); GLUCOSE 257 mg/dL (74-106); POTASSIUM 4.2 mmol/L (3.5-5.1)
[2018-11-14 07:33] LABS: ALBUMIN 3.1 g/dL (3.4-5.0); MAGNESIUM 2.6 mg/dL (1.8-2.4); SGOT 100 U/L (15-37); SGPT 67 U/L (30-65); TOTAL BILIRUBIN 0.3 mg/dL (<0.1-1.0); TOTAL PROTEIN 6.5 g/dL (6.4-8.2); TROPONIN-I <0.06 ng/mL (<0.06)
[2018-11-14 07:34] LABS: SODIUM 144 mmol/L (136-145)
[2018-11-14 07:51] VITALS: BP 148/91
--- NOTE | 2018-11-14 08:45 | EKG ---
[facility] [place] [address] ELECTROCARDIOGRAM REPORT Name: MARSHALL KLINE [facility] #[facility] [id number] ������������������ Admission: 11/14/18 ������������������ Attend Phys: Discharge: 11/14/18 ������������������ Date of : 53 Report #: [id number] ����������������������������������������������������������������� [id number] THIS REPORT FOR: //name// [facility] ED Test Date: 2018-11-14 Test Time: 06:08:01 Pat Name: MARSHALL KLINE Department: Room: Gender: M Ctrs: : 1955 Requested By: Rene Christiansen Order Number: [id number] MD: Davi Purdy Measurements Intervals [place] Rate: 84 P: 85 [place]: 141 QRS: 71 QRSD: 94 T: 28 QT: 423 QTc: 501 Interpretive Statements Sinus rhythm Left ventricular hypertrophy Anterior Q waves, possibly due to LVH Prolonged QT interval Baseline wander in lead(s) II,aVF Compared to ECG 10/20/2018 06:37:14 sinus tachycardia no longer present Electronically Signed On 11-14-2018 8:45:13 CDT by Davi Purdy [email or web address] ��������������������������������������������� <ELECTRONICALLY SIGNED> ���������������������������������������� By: Davi Purdy MD, [facility] ��������������������������������������������� 11/14/18 0845 0608 0608 Davi Purdy MD, [facility] /EPI
== END 2018-11-14 07:53 | disposition left against medical advice (07) ==
LOC: ER 05:44
PROVIDERS: Emergency Medicine
DX: J44.1 Chronic obstructive pulmonary disease with (acute) exacerbation (principal); J81.1 Chronic pulmonary edema; I11.0 Hypertensive heart disease with heart failure; R06.03 Acute respiratory distress; I50.20 Unspecified systolic (congestive) heart failure; Z87.891 Personal history of nicotine dependence